=== PATIENT | female | born 1980 | race Caucasian/White ===

== ENCOUNTER 2021-10-02 12:50 | Emergency (ER) | payer OTHER ==
[2021-10-02 14:47] LABS: BASOPHIL 0.5 % (0-2); EOSINOPHIL 0.8 % (0-5); HCT 42.7 % (37.0-47.0); HGB 14.5 g/dl (12.5-16.0); LYMPHOCYTE 15.4 % (15-48); MCH 31.8 pg (25.0-31.0); MCV 93.6 fL (78.0-100.0); MPV 10.3 fL (6.0-9.5); NEUTROPHIL 76.1 % (41-80); NRBC 0; PLT 208 K/uL (150-400); RBC 4.56 M/uL (4.20-5.40); RDW 13.6 % (11.5-14.0)
[2021-10-02 15:18] LABS: CORONAVIRUS 2019 SARS-COV-2 NEGATIVE (NEGATIVE); INFLUENZA A NAA NEGATIVE (NEGATIVE)
[2021-10-02 15:28] LABS: ALBUMIN 3.4 g/dL (3.4-5.0); BUN/CREAT RATIO (CALC) 6.6 RATIO; CREATININE 0.76 mg/dL (0.51-0.95); GLOBULIN (CALCULATION) 3.4 g/dL; POTASSIUM 3.7 mmol/L (3.5-5.1); TOTAL PROTEIN 6.8 g/dL (6.4-8.2)
[2021-10-02 17:47] LABS: INR 1.17 (0.9-1.2); PROTHROMBIN TIME 14.3 SECONDS (11.8-13.4); PTT 33.2 SECONDS (24.4-34.7)
[2021-10-02 18:45] LABS: ACETAMINOPHEN (TYLENOL) < 2.0 ug/mL (10.0-30.0)
[2021-10-02] MEDS ORDERED: ONDANSETRON ODT4 MG PO (19:47)
[2021-10-02] MEDS ORDERED: PERCOCET 5-3251 EACH PO (19:47)
[2021-10-04 06:10] LABS: HBSAG SCREEN Positive (Negative); HEP A AB, IGM Negative (Negative); HEP B CORE AB, IGM Positive (Negative); HEP C VIRUS AB <0.1 (0.0-0.9)
== END 2021-10-02 19:40 | disposition home or self-care (01) ==
LOC: FER 12:50
PROVIDERS: Internal Medicine; Nurse Practitioner Family
DX: B17.9 Acute viral hepatitis, unspecified (principal); F17.210 Nicotine dependence, cigarettes, uncomplicated; Z20.822 Contact with and (suspected) exposure to COVID-19
CPT/HCPCS: 36415; 80053; 80074; 82140; 82150; 82390; 82728; 83540; 83550; 83690; 85025; 85610; 85730; 86038; G0480; J2270; J2405; J7030; Q9967; U0002

== ENCOUNTER 2021-10-05 14:22 | Emergency (ER) | payer OTHER ==
[~2021-10-05 14:22] MED LIST: ONDANSETRON ODT4 MG PO; PERCOCET 5-3251 EACH PO
[2021-10-05 14:47] LABS: BASOPHIL 0.9 % (0-2); EOSINOPHIL 1.1 % (0-5); HCT 42.6 % (37.0-47.0); HGB 14.1 g/dl (12.5-16.0); LYMPHOCYTE 20.3 % (15-48); MCH 31.3 pg (25.0-31.0); MCHC 33.1 g/dL (32.0-36.0); MCV 94.7 fL (78.0-100.0); MONOCYTE 5.1 % (0-12); MPV 10.1 fL (6.0-9.5); NEUTROPHIL 72.3 % (41-80); NRBC 0; PLT 257 K/uL (150-400); RDW 13.9 % (11.5-14.0); WBC 6.5 K/uL (4.0-10.5)
[2021-10-05 15:09] LABS: BILIRUBIN - TOTAL 14.2 mg/dL (0.2-1.0); BUN/CREAT RATIO (CALC) 5.6 RATIO; CREATININE 0.54 mg/dL (0.51-0.95); GLOBULIN (CALCULATION) 3.4 g/dL; POTASSIUM 3.7 mmol/L (3.5-5.1); TOTAL PROTEIN 6.4 g/dL (6.4-8.2)
[2021-10-05 15:49] LABS: ACETAMINOPHEN (TYLENOL) < 2.0 ug/mL (10.0-30.0); LIPASE 132 U/L (73-393)
[2021-10-05 15:53] LABS: BILIRUBIN 3+ mg/dL (NEGATIVE); BLOOD 1+ Ery/uL (NEGATIVE); CLARITY CLEAR (CLEAR); COLOR YELLOW (YELLOW); GLUCOSE (U) NORMAL (NORMAL); LEUKOCYTES NEGATIVE Leu/uL (NEGATIVE); NITRITE NEGATIVE (NEGATIVE); PROTEIN NEGATIVE (NEGATIVE); SPECIFIC GRAVITY 1.015 (1.001-1.030); UROBILINOGEN 0.2 mg/dL (0.2-1.0); pH 6.5 (5.0-9.0)
[2021-10-05 15:58] LABS: AMPHETAMINES NEGATIVE (NEGATIVE); BARBITURATES NEGATIVE (NEGATIVE); ECSTASY (MDMA) NEGATIVE (NEGATIVE); MARIJUANA (THC) NEGATIVE (NEGATIVE); METHADONE NEGATIVE (NEGATIVE); OPIATES NEGATIVE (NEGATIVE); OXYCODONE POSITIVE (NEGATIVE)
[2021-10-05 16:16] LABS: BACTERIA 1+; SQUAMOUS EPITHELIAL CELLS RARE; URINARY WBC RARE
[2021-10-05 16:31] LABS: INR 1.25 (0.9-1.2); PTT 31.8 SECONDS (24.4-34.7)
[2021-10-05 16:44] LABS: CORONAVIRUS 2019 SARS-COV-2 NEGATIVE (NEGATIVE); INFLUENZA A NAA NEGATIVE (NEGATIVE)
[2021-10-06 05:11] LABS: BASOPHIL 1.1 % (0-2); EOSINOPHIL 1.7 % (0-5); HCT 39.5 % (37.0-47.0); HGB 13.3 g/dl (12.5-16.0); LYMPHOCYTE 25.4 % (15-48); MCHC 33.7 g/dL (32.0-36.0); MONOCYTE 6.9 % (0-12); MPV 10.4 fL (6.0-9.5); NEUTROPHIL 64.7 % (41-80); NRBC 0; PLT 235 K/uL (150-400); RBC 4.16 M/uL (4.20-5.40); RDW 14.1 % (11.5-14.0); WBC 5.4 K/uL (4.0-10.5)
[2021-10-06 05:28] LABS: ALBUMIN 2.6 g/dL (3.4-5.0); BUN/CREAT RATIO (CALC) 5.3 RATIO; CREATININE 0.57 mg/dL (0.51-0.95); GLOBULIN (CALCULATION) 3.2 g/dL; POTASSIUM 3.5 mmol/L (3.5-5.1); TOTAL PROTEIN 5.8 g/dL (6.4-8.2)
[2021-10-06 05:37] LABS: BILIRUBIN - TOTAL 11.7 mg/dL (0.2-1.0)
== END 2021-10-06 08:50 | disposition other institution (70) ==
LOC: FER 14:22
PROVIDERS: Emergency Medicine; Emergency Medicine Emergency Medical Services; Nurse Practitioner Family
DX: B16.9 Acute hepatitis B without delta-agent and without hepatic coma (principal); F17.200 Nicotine dependence, unspecified, uncomplicated; Z20.822 Contact with and (suspected) exposure to COVID-19
CPT/HCPCS: 36415; 80053; 80305; 81001; 82140; 83690; 85025; 85610; 85730; G0480; J1170; J2405; J2550; J7040; U0002

== ENCOUNTER 2022-02-03 10:16 | Emergency (ER) | payer OTHER ==
[2022-02-03 12:13] LABS: BASOPHIL 0.5 % (0-2); HCT 41.9 % (37.0-47.0); HGB 14.3 g/dl (12.5-16.0); MCH 32.3 pg (25.0-31.0); MCHC 34.1 g/dL (32.0-36.0); MCV 94.6 fL (78.0-100.0); MONOCYTE 5.2 % (0-12); MPV 9.9 fL (6.0-9.5); NEUTROPHIL 68.4 % (41-80); NRBC 0; PLT 274 K/uL (150-400); RBC 4.43 M/uL (4.20-5.40); RDW 11.6 % (11.5-14.0); WBC 8.1 K/uL (4.0-10.5)
[2022-02-03 12:26] LABS: LACTIC ACID 0.7 mmol/L (0.4-1.9)
[2022-02-03 12:35] LABS: BILIRUBIN NEGATIVE (NEGATIVE); BLOOD NEGATIVE Ery/uL (NEGATIVE); CLARITY CLEAR (CLEAR); COLOR YELLOW (YELLOW); GLUCOSE (U) NORMAL (NORMAL); LEUKOCYTES NEGATIVE Leu/uL (NEGATIVE); NITRITE NEGATIVE (NEGATIVE); PROTEIN NEGATIVE (NEGATIVE); SPECIFIC GRAVITY <=1.005 (1.001-1.030); UROBILINOGEN 0.2 mg/dL (0.2-1.0)
[2022-02-03 12:44] LABS: AMPHETAMINES NEGATIVE (NEGATIVE); BARBITURATES NEGATIVE (NEGATIVE); ECSTASY (MDMA) NEGATIVE (NEGATIVE); MARIJUANA (THC) NEGATIVE (NEGATIVE); METHADONE NEGATIVE (NEGATIVE); OPIATES NEGATIVE (NEGATIVE); OXYCODONE NEGATIVE (NEGATIVE)
[2022-02-03 13:03] LABS: ALBUMIN 3.9 g/dL (3.4-5.0); BILIRUBIN - TOTAL 0.2 mg/dL (0.2-1.0); BUN/CREAT RATIO (CALC) 15.2 RATIO; CREATININE 0.66 mg/dL (0.51-0.95); GLOBULIN (CALCULATION) 3.5 g/dL; POTASSIUM 4.4 mmol/L (3.5-5.1); TOTAL PROTEIN 7.4 g/dL (6.4-8.2)
== END 2022-02-03 14:39 | disposition home or self-care (01) ==
LOC: FER 10:16
PROVIDERS: Emergency Medicine
DX: M54.9 Dorsalgia, unspecified (principal); R10.9 Unspecified abdominal pain; Z28.310 Unvaccinated for COVID-19
CPT/HCPCS: 36415; 80053; 80305; 81003; 83605; 83690; 85025; J2270; J2405